=== PATIENT | female | born 1990 | race African-American/Black ===

== ENCOUNTER 2017-10-04 03:54 | Emergency (ER) | payer OTHER ==
[2017-10-04] MEDS: IPRATRPIUM/ALBUTEROL 0.5/2.5MG 3 ML NEBU. NEB (04:30)
[2017-10-04 07:22] LABS: NEGATIVE OBC STREP NEG; POSITIVE OBC STREP POS
== END 2017-10-04 05:01 | disposition home or self-care (01) ==
LOC: ER 03:54
DX: J02.8 Acute pharyngitis due to other specified organisms (principal); B97.89 Other viral agents as the cause of diseases classified elsewhere
CPT/HCPCS: 71045; 87070; 87880; 94640; 99285-25; J7620